=== PATIENT | male | born 1985 | race African-American/Black ===

== ENCOUNTER → 2020-09-30 | Outpatient (CLI) | payer SELFPAY ==
--- NOTE | 2020-09-30 11:59 | Diagnostic Imaging Report ---
Indication: Back pain. Findings: Thoracic vertebral statures are normal. The alignment is anatomic. The disc space is preserved. No bony destruction. No fracture. Impression: Unremarkable radiographic appearance of the anatomically aligned thoracic spine. Dictated by: Dictated on workstation # [id number]
== END ==
LOC: RAD FS 11:35
PROVIDERS: ATTEND Nurse Practitioner Family
DX: M54.2 Cervicalgia (principal); M62.838 Other muscle spasm
CPT/HCPCS: 72070

== ENCOUNTER 2021-11-22 18:40 | Emergency (ER) | payer SELFPAY ==
[~2021-11-22] VITALS: Ht 170 cm; Wt 97.7 kg
--- NOTE | 2021-11-22 19:06 | ED General ---
General Chief Complaint: Abdominal/GI Problems Stated Complaint: VOMITTING BLOOD Source of Information: Patient History of Present Illness Date Seen by Provider: Nov 22, 2021 Time Seen by Provider: 19:00 Initial Comments 36-year-old male presenting with complaints of nausea, vomiting, diarrhea. He states this is been going on throughout the day. He has had ill contacts with similar symptoms. This evening he started having some bright red blood at the end of his vomiting. He was having epigastric tenderness as well. He denies any blood in his diarrhea or having black tarry stools. He is not having cont inued vomiting of blood but only seen blood at the very end of when he throws up. He has been throwing up very forcefully. He denies any feeling of being dizzy, lightheaded, fever, chills, pain with urination. He has some diffuse abdominal cramping that is worse in the epigastric area. He does not have a primary care provider and states usually he would not go to see a provider about his symptoms today except he became worried when he saw the blood at the end of his episode of vomiting Timing/Duration: 12-24 Hours Severity: Moderate Modifying Factors: worse with Eating (trying to eat or drink makes him nauseated and he has been vomiting) Associated Systoms: No Chest Pain, No Cough, No Diaphoresis, No Fever/Chills, No Headaches, No Loss of Appetite; Malaise, Nausea/Vomiting; No Rash, No Seizure , No Shortness of Air, No Syncope, No Weakness Allergies and Home Medications Allergies Coded Allergies: No Known Drug Allergies (Unverified , 11/22/21) Patient Home Medication List Home Medication List Reviewed: Yes Ondansetron (Ondansetron Odt) 4 Mg Tab.rapdis, 4 MG PO Q6H PRN for NAUSEA/VOMITING Prescribed by: GLORIA DE LA TORRE on 11/22/211953 Review of Systems Review of Systems Constitutional: No see HPI EENTM: no symptoms reported Respiratory: no symptoms reported Cardiovascular: no symptoms reported Gastrointestinal: see HPI Genitourinary: no symptoms reported Musculoskeletal: no symptoms reported Skin: No rash Psychiatric/Neurological: Denies Headache Past Jiqywfi-Xvtysb-Njgvjn Hx Patient Social History Tobacco Use?: Yes Tobacco type used: Cigarettes Smoking Status: Current Everyday Smoker Substance use?: Yes Substance type: Marijuana Substance frequency: Once in a while Alcohol Use?: Yes Alcohol Frequency: Once in a while Pt feels they are or have been: No Immunizations Up To Date First/Initial COVID19 Vaccinat: Yes Past Medical History Surgery/Hospitalization HX: None Physical Exam Vital Signs Vital Signs - First Documented 11/22/21 18:45 Temp 36.7 Pulse 97 Resp 16 B/P (MAP) 141/93 (109) Pulse Ox 97 O2 Delivery Room Air Capillary Refill : Height, Weight, BMI Height: '" Weight: lbs. oz. kg; BMI Method: General Appearance: Anxious HEENT: PERRL/EOMI, Moist Mucous Membranes, Pharyngeal Erythema Neck: Full Range of Motion, Normal Inspection, Non Tender, Supple Respiratory: Chest Non Tender, Lungs Clear, Normal Breath Sounds, No Accessory Muscle Use, No Respiratory Distress Cardiovascular: Regular Rate, Rhythm, Normal Peripheral Pulses Gastrointestinal: Normal Bowel Sounds, No Pulsatile Mass, Soft; No Abnormal Bowel Sounds, No Distended, No Guarding, No Hepatomegaly, No Rebound; Tenderness (mild diffuse tenderness worse in epigastric area) Rectal: Deferred Back: No CVA Tenderness Extremity: Normal Capillary Refill, Normal Inspection, No Pedal Edema Neurologic/Psychiatric: Alert, Oriented x3 Skin: Normal Color, Warm/Dry Progress/Results/Core Measures Suspected Sepsis SIRS Temperature: Pulse: Respiratory Rate: Blood Pressure / Mean: Results/Orders My Orders Orders - GLORIA DE LA TORRE MD Ondansetron Oral Dissolve Tab (Zofran (11/22/21 19:50) Rx-Ondansetron Po (Rx-Zofran Po) (11/22/21 20:00) Medications Given in ED Current Medications Medications Dose Ordered Sig/Bridget Route Start Time Stop Time Status Last Admin Dose Admin Ondansetron HCl 4 mg Q6H PRN PO 11/22/21 20:00 11/22/21 19:59 DC 11/22/21 19:56 4 MG Vital Signs/I&O 11/22/21 11/22/21 18:45 19:57 Temp 36.7 36.7 Pulse 97 97 Resp 16 16 B/P (MAP) 141/93 (109) 141/93 Pulse Ox 97 97 O2 Delivery Room Air Room Air Capillary Refill : Progress Note : Progress Note Advised patient that he likely has either a small blood vessel that had torn her first with the vomiting or just irritation to his throat and the lining of his stomach and esophagus from repeated episodes of vomiting throughout the day. There is no evidence of him having heavy active bleeding since he is not having repeated episodes of just bright red blood or coffee-ground emesis. Patient denies feeling dizzy or lightheaded and refused IV stating he felt like he could work on hydration with the nausea medicine. He was reassured about the discussing why he had blood in his vomit. Counseled to follow-up and establish care with a primary care provider for continued concerns or return if having worsening symptoms Departure Impression Primary Impression: Nausea vomiting and diarrhea Additional Impression: Symptom of blood in vomit Disposition: HOME, SELF-CARE Condition: Stable Departure-Patient Inst. Decision time for Depature: 19:51 Referrals: NO,LOCAL PHYSICIAN (PCP) Primary Care Physician [facility] [phone] to call and get established with a primary care provider Patient Instructions: Diarrhea, Adult ED, Nausea and Vomiting, Adult ED Add. Discharge Instructions: Try to follow a liquid diet for the next 12 to 24 hours. After that he could advance to a bland brat type diet to see if you tolerate it. If you are tolerating a diet for at least 12 hours she could advance back to a more regular diet. If you are having worsening symptoms or still unable to keep you vomiting controlled with the nausea medication you could return and seek further medical care. If you are having repeated episodes of vomiting blood or all of the vomit is blood not just towards the end of your vomit then again you could return to be further evaluated. You could check with the [facility] clinic about establishing with a primary care provider and follow-up as well. Consider using electrolyte drinks to help with hydration. You could also consider using some liquid IV mixed in with water to help with your hydration. Consider taking Pepcid or Prilosec medicine to help with stomach and esophagus irritation from your vomiting. All discharge instructions reviewed with patient and/or family. Voiced understanding. Scripts Ondansetron (Ondansetron Odt) 4 Mg Tab.rapdis 4 MG PO Q6H PRN for NAUSEA/VOMITING for 2 Days, #8 TAB 0 Refills Prov: GLORIA DE LA TORRE MD 11/22/21 Work/School Note: Work Release Form Date Seen in the Emergency Department: Nov 22, 2021 Return to Work: Nov 24, 2021 Restrictions: Return-No Vomiting(24hrs) GLORIA DE LA TORRE MD Nov 22, 2021 19:06
[2021-11-22] MEDS ORDERED: ONDANSETRON 4 MG (ZOFRAN) ORAL DISSOLVE TAB PO STA (19:50)
[2021-11-22] MEDS ORDERED: ONDA4TAB11 PO (19:54)
[2021-11-22 19:57] VITALS: BP 141/93
[2021-11-22] MEDS ORDERED: RX-ONDANSETRON 4 MG ODT (ZOFRAN) PPK #4 PO PRN (20:00)
== END 2021-11-22 19:58 | disposition home or self-care (01) ==
LOC: EDUNIT# 18:40 → ER FS 18:41
DX: R11.2 Nausea with vomiting, unspecified (principal); R19.7 Diarrhea, unspecified; F17.210 Nicotine dependence, cigarettes, uncomplicated
CPT/HCPCS: 99283

== ENCOUNTER 2022-01-28 23:25 | Emergency (ER) | payer SELFPAY ==
[~2022-01-28 23:25] MED LIST: ONDA4TAB11 PO
[2022-01-28] MEDS ORDERED: ONDANSETRON 4 MG/2 ML (SDV) Z0FRAN IV ONE (23:45)
[2022-01-28] MEDS ORDERED: PANTOPRAZOLE 40 MG (PROTONIX) VIAL IV STA (23:45)
[2022-01-28] MEDS ORDERED: NS IV 1000 ML 1,000 ML IV SCH (23:45)
[2022-01-28 23:52] LABS: BASOPHILS % (AUTO) 0 % (0-10); EOSINOPHILS % (AUTO) 0 % (0-10); HEMATOCRIT 43 % (40-54); HEMOGLOBIN 14.6 g/dL (13.3-17.7); LYMPHOCYTES # (AUTO) 0.3 10^3/uL (1.0-4.0); LYMPHOCYTES % (AUTO) 3 % (12-44); MEAN CORPUSCULAR HEMOGLOBIN 29 pg (25-34); MEAN CORPUSCULAR HGB CONC 34 g/dL (32-36); MEAN CORPUSCULAR VOLUME 87 fL (80-99); MONOCYTES # (AUTO) 0.6 10^3/uL (0.0-1.0); MONOCYTES % (AUTO) 7 % (0-12); NEUTROPHILS # (AUTO) 7.4 10^3/uL (1.8-7.8); NEUTROPHILS % (AUTO) 88 % (42-75); PLATELET COUNT 309 10^3/uL (130-400); WHITE BLOOD COUNT 8.4 10^3/uL (4.3-11.0)
--- NOTE | 2022-01-29 00:09 | ED General ---
General Chief Complaint: COVID19 Suspect/Confirmed Stated Complaint: VOMITING/CHILLS Nursing Triage Note: Pt complaining of nausea, vomiting, headache and chills since he woke up this morning. Pt's daughter was exposed to a covid positive case this past week Source of Information: Patient History of Present Illness Date Seen by Provider: Jan 29, 2022 Time Seen by Provider: 23:28 Initial Comments 36-year-old male presenting with complaints of headache, chills, nausea, vomiting and diarrhea. He states this all started this morning and he found out that his daughter was positive for COVID yesterday. He has had 1 shot for COVID but not a second or any boosters. He had some shortness of breath earlier today. He denies any cough or congestion. He did have a single Zofran leftover from last visit in October when he was here in the ED for nausea vomiting. He took the dissolving Zofran tablet and it did help settle his stomach earlier. Timing/Duration: 1 Day Severity: Moderate Modifying Factors: worse with Eating Associated Systoms: No Chest Pain, No Cough, No Diaphoresis; Fever/Chills (Subjective), Headaches, Loss of Appetite, Malaise, Nausea/Vomiting; No Rash, No Seizure, No Shortness of Air, No Syncope, No Weakness Allergies and Home Medications Allergies Coded Allergies: No Known Drug Allergies (Unverified , 11/22/21) Patient Home Medication List Home Medication List Reviewed: Yes Ondansetron (Ondansetron Odt) 4 Mg Tab.rapdis, 4 MG PO Q6H PRN for NAUSEA/VOMITING Prescribed by: GLORIA DE LA TORRE on 01/29/22 0038 Discontinued Medications Ondansetron (Ondansetron Odt) 4 Mg Tab.rapdis, 4 MG PO Q6H PRN for NAUSEA/VOMITING Prescribed by: GLORIA DE LA TORRE on 11/22/211953 Review of Systems Review of Systems Constitutional: chills, fever (Low-grade), malaise EENTM: no symptoms reported Respiratory: no symptoms reported Cardiovascular: no symptoms reported Gastrointestinal: see HPI, abdominal pain (Diffuse mild abdominal pain and cramping), diarrhea, nausea, vomiting Genitourinary: decreased output Musculoskeletal: no symptoms reported Skin: No rash Psychiatric/Neurological: Headache Hematologic/Lymphatic: Denies Blood Clots, Denies Easy Bleeding, Denies Easy Bruising Immunological/Allergic: no symptoms reported Past Cngznip-Omiswv-Rkrxql Hx Patient Social History Tobacco Use?: Yes Tobacco type used: Cigarettes Smoking Status: Current Everyday Smoker Use of E-Cig and/or Vaping dev: No Substance use?: No Alcohol Use?: Yes Alcohol Frequency: Once in a while Pt feels they are or have been: No Immunizations Up To Date First/Initial COVID19 Vaccinat: Yes Past Medical History Surgery/Hospitalization HX: None Physical Exam Vital Signs Vital Signs - First Documented 01/28/22 23:31 Temp 37.7 Pulse 78 Resp 18 B/P (MAP) 150/85 (106) Pulse Ox 97 O2 Delivery Room Air Capillary Refill : Less Than 3 Seconds Height, Weight, BMI Height: '" Weight: lbs. oz. kg; 33.00 BMI Method: General Appearance: No Apparent Distress, WD/WN HEENT: PERRL/EOMI, Pharynx Normal Neck: Full Range of Motion, Normal Inspection, Non Tender, Supple Respiratory: Chest Non Tender, Lungs Clear, Normal Breath Sounds, No Accessory Muscle Use, No Respiratory Distress Cardiovascular: Regular Rate, Rhythm, Normal Peripheral Pulses Gastrointestinal: Normal Bowel Sounds, No Pulsatile Mass, Non Tender, Soft Rectal: Deferred Extremity: Normal Capillary Refill, Normal Inspection, Normal Range of Motion, No Pedal Edema Neurologic/Psychiatric: Alert, Oriented x3, video conference specialist II-XII Norm as Tested Skin: Normal Color, Warm/Dry; No Rash Progress/Results/Core Measures Suspected Sepsis SIRS Temperature: Pulse: 78 Respiratory Rate: 18 Laboratory Tests 01/28/22 23:48: White Blood Count 8.4 Blood Pressure 150 /85 Mean: 106 Laboratory Tests 01/28/22 23:48: Creatinine 0.86, Platelet Count 309, Total Bilirubin 0.4 Results/Orders Lab Results Laboratory Tests Test 01/28/22 23:48 Range/Units White Blood Count 8.4 4.3-11.0 10^3/uL Red Blood Count 4.98 4.30-5.52 10^6/uL Hemoglobin 14.6 13.3-17.7 g/dL Hematocrit 43 40-54 % Mean Corpuscular Volume 87 80-99 fL Mean Corpuscular Hemoglobin 29 25-34 pg Mean Corpuscular Hemoglobin Concent 34 32-36 g/dL Red Cell Distribution Width 13.4 10.0-14.5 % Platelet Count 309 130-400 10^3/uL Mean Platelet Volume 10.0 9.0-12.2 fL Immature Granulocyte % (Auto) 0 % Neutrophils (%) (Auto) 88 H 42-75 % Lymphocytes (%) (Auto) 3 L 12-44 % Monocytes (%) (Auto) 7 0-12 % Eosinophils (%) (Auto) 0 0-10 % Basophils (%) (Auto) 0 0-10 % Neutrophils # (Auto) 7.4 1.8-7.8 10^3/uL Lymphocytes # (Auto) 0.3 L 1.0-4.0 10^3/uL Monocytes # (Auto) 0.6 0.0-1.0 10^3/uL Eosinophils # (Auto) 0.0 0.0-0.3 10^3/uL Basophils # (Auto) 0.0 0.0-0.1 10^3/uL Immature Granulocyte # (Auto) 0.0 0.0-0.1 10^3/uL Neutrophils % (Manual) 91 % Lymphocytes % (Manual) 5 % Monocytes % (Manual) 4 % Sodium Level 138 135-145 MMOL/L Potassium Level 3.8 3.6-5.0 MMOL/L Chloride Level 102 98-107 MMOL/L Carbon Dioxide Level 24 21-32 MMOL/L Anion Gap 12 5-14 MMOL/L Blood Urea Nitrogen 8 7-18 MG/DL Creatinine 0.86 0.60-1.30 MG/DL Estimat Glomerular Filtration Rate 114 BUN/Creatinine Ratio 9 Glucose Level 101 70-105 MG/DL Calcium Level 9.4 8.5-10.1 MG/DL Corrected Calcium 9.0 8.5-10.1 MG/DL Total Bilirubin 0.4 0.1-1.0 MG/DL Aspartate Amino Transf (AST/SGOT) 15 5-34 U/L Alanine Aminotransferase (ALT/SGPT) 15 0-55 U/L Alkaline Phosphatase 64 40-136 U/L C-Reactive Protein 0.93 H <0.50 MG/DL Total Protein 7.5 6.4-8.2 GM/DL Albumin 4.5 3.2-4.5 GM/DL Lipase 11 8-78 U/L My Orders Orders - GLORIA DE LA TORRE MD Ed Iv/Invasive Line Start (01/28/22 23:45) Cbc With Automated Diff (01/28/22 23:45) Comprehensive Metabolic Panel (01/28/22 23:45) Crp Fs (01/28/22 23:45) Ns Iv 1000 Ml (Sodium Chloride 0.9%) (01/28/22 23:45) Ondansetron Injection (Zofran Injectio (01/28/22 23:45) Lipase (01/28/22 23:45) Ua Culture If Indicated (01/28/22 23:45) Pantoprazole Injection (Protonix Injecti (01/28/22 23:45) Covid 19 Inhouse Test (01/28/22 23:47) Manual Differential (01/28/22 23:48) Rx-Ondansetron Po (Rx-Zofran Po) (01/29/22 00:41) Medications Given in ED Current Medications Medications Dose Ordered Sig/Bridget Route Start Time Stop Time Status Last Admin Dose Admin Ondansetron HCl 4 mg ONCE ONCE IV 01/28/22 23:45 01/28/22 23:47 DC 01/28/22 23:59 4 MG Vital Signs/I&O 01/28/22 6 23:31 00:46 Temp 37.7 37.7 Pulse 78 82 Resp 18 18 B/P (MAP) 150/85 (106) 130/65 Pulse Ox 97 97 O2 Delivery Room Air Room Air Capillary Refill : Less Than 3 Seconds Blood Pressure Mean: 106 Progress Note #1: Progress Note Check basic labs and urinalysis. Obtain COVID swab but explained to patient. 24 to 48 hours before the result will be back. Treat presumptively for COVID based off of his symptoms and positive exposure. Progress Note #2: Progress Note Labs appear stable without acute significant abnormality. He does not have an elevated white blood cell count. His chemistry panel was normal other than mild elevation of his CRP. Patient had improvement in his symptoms with treatment here in the ED. Will discharge on nausea medication and encouraged to follow-up through the clinic for continued concerns. Counseled on quarantine and isolation recommendations Departure Impression Primary Impression: Person under investigation for severe acute respiratory syndrome coronavirus 2 (SARS-CoV-2) infection Additional Impression: Nausea vomiting and diarrhea Disposition: HOME, SELF-CARE Condition: Stable Departure-Patient Inst. Decision time for Depature: 00:36 Referrals: NO,LOCAL PHYSICIAN (PCP) Primary Care Physician [facility] Patient Instructions: COVID-19 ED, Diarrhea, Adult ED, Nausea and Vomiting, Adult ED Add. Discharge Instructions: Stay well-hydrated and drink plenty of fluids. Use the dissolving nausea tablets to help keep your stomach settled You should quarantine for COVID through Sunday. During your quarantine you should continue to wear mask and stay isolated from other people. On if your symptoms have resolved you could return to work but would still need to wear a mask for at least 5 more days Check back through the clinic for continued concerns and problems. All discharge instructions reviewed with patient and/or family. Voiced understanding. Scripts Ondansetron (Ondansetron Odt) 4 Mg Tab.rapdis 4 MG PO Q6H PRN for NAUSEA/VOMITING for 5 Days, #20 TAB 0 Refills Prov: GLORIA DE LA TORRE MD 01/29/22 Work/School Note: Work Release Form Date Seen in the Emergency Department: Jan 29, 2022 Return to Work: Feb 02, 2022 Restrictions: Return-No Fever (24hrs) Other Restrictions Listed Below: Quarantine and wear mask through February 02. Wear mask until February 07 GLORIA DE LA TORRE MD Jan 29, 2022 00:09
[2022-01-29 00:17] LABS: CALCIUM 9.4 MG/DL (8.5-10.1); CREATININE SERUM 0.86 MG/DL (0.60-1.30); POTASSIUM 3.8 MMOL/L (3.6-5.0)
[2022-01-29 00:18] LABS: ALBUMIN 4.5 GM/DL (3.2-4.5); BILIRUBIN,TOTAL 0.4 MG/DL (0.1-1.0); TOTAL PROTEIN 7.5 GM/DL (6.4-8.2)
[2022-01-29] MEDS ORDERED: ONDA4TAB11 PO (00:38)
[2022-01-29] MEDS ORDERED: RX-ONDANSETRON 4 MG ODT (ZOFRAN) PPK #4 PO STA (00:41)
[2022-01-29 00:42] LABS: LYMPHOCYTES % (MANUAL) 5 %; MONOCYTES % (MANUAL) 4 %; NEUTROPHILS % (MANUAL) 91 %
[2022-01-29 00:46] VITALS: BP 130/65
== END 2022-01-29 00:51 | disposition home or self-care (01) ==
LOC: EDUNIT# 23:25 → ER FS 23:28
DX: U07.1 COVID-19 (principal); R11.2 Nausea with vomiting, unspecified; R19.7 Diarrhea, unspecified; R79.82 Elevated C-reactive protein (CRP); F17.210 Nicotine dependence, cigarettes, uncomplicated; Z28.311 Partially vaccinated for COVID-19
CPT/HCPCS: 36415; 80053; 83690; 85007; 85027; 86141; 87636